=== PATIENT | male | born 1955 | race Caucasian/White ===

== ENCOUNTER 2022-03-27 09:16 | Emergency (ER) | payer MEDICARE, SELFPAY ==
[2022-03-27] VITALS (9 sets, daily range): BP systolic 114–139; BP diastolic 82–94; PULSE 108; RESP 20; TEMP 36.6; O2SAT 95–100
--- NOTE | ~2022-03-27 | CT_ITS ---
EXAMINATION: CT abdomen pelvis wo con DATE: 03/27/2022 12:32 INDICATION: Groin pain. TECHNIQUE: Computed tomography (CT) of the abdomen and pelvis was performed without intravenous contr ast. Automated exposure control and iterative reconstruction technique were employed. The dose-length product was 945.01 mGy-cm. COMPARISON: None. FINDINGS: The visualized portions of the lung bases demonstrate mild atelectasis. No pleural effusion . The heart size is normal. There are coronary artery calcifications. No pericardial effusion. The li maryjo is normal. There are gallstones in the gallbladder, which is normal in size. The spleen, pancreas , and adrenal glands are normal. There is an 11 mm cyst in right kidney. There is a 2 mm stone in rig ht kidney. Left kidney is normal. A Lanier catheter extends from the urethra through a fistula in the membranous urethra and into the rectum. The bladder is distended and contains contrast. There is a ri ght inguinal hernia containing fat and trace ascites. There is an umbilical hernia containing fat. Th ere are no pathologically enlarged lymph nodes. There are brachytherapy seeds in the prostate. There is severe lumbar spondylosis. There are chronic bilateral L5 pars defects. There is 4 mm anterolisthe sis of L5 on S1. IMPRESSION: 1. The Lanier catheter passes through a fistula in the membranous urethra into the rectum. Reviewed, dictated and finalized at location A. IMPRESSION: 1. The Lanier catheter passes through a fistula in the membranous urethra into t he rectum.
--- NOTE | 2022-03-27 09:32 | ED.GENADULT ---
HPI - General Adult General Chief complaint: Urogenital-Male Stated complaint: URINATING OUT OF RECTUM HX PROSTATE CANCER Time Seen by Provider: 03/27/22 09:22 Source: patient Mode of arrival: ambulatory Limitations: no limitations History of Present Illness HPI narrative: 66 years old white male came to the ED by private car from home complaining of urinating from the rectum over the last 8 days. History of prostatic cancer diagnosed April 2021 MD complaint: Psychotic cyclic right foot pain refusal to urinate for the same reason Related Data Allergies Allergy/AdvReac Type Severity Reaction Status Date / Time Penicillins Allergy Unknown Unknown Verified 03/27/22 09:35 [facility] Family History Family History Mother Diabetes mellitus Family history of malignant neoplasm, Onset Age: 70 Father Family history of chronic obstructive pulmonary disease, Onset Age: 89 Social History Social History Smoking status: Never smoker Second hand tobacco smoke exposure: No Alcohol intake: never Course Consultations Consultation #1: DR DIAZ No need for blood work-up or CAT scan today because patient had all that stuff done yesterday at [facility]. Place Lanier catheter, asked patient follow-up with Dr. Carvalho at [facility] for urethral reconstruction. Date: 03/27/22 Time: 11:16 Consultation #2: Dr. Smiley, urethral construction surgeon at [facility] He recommended patient have Lanier catheter and follow-up with them as outpatient, phone number is [phone]. Dr. Smiley was able to see the CAT scan and blood work-up of the patient on his computer today from [facility] yesterday and he could not see any fistula at this time. He believes that Lanier catheter would be okay in the meantime until he will be seen by them. Patient is started on antibiotic yesterday. Dr. Diaz came to the emergency room and managed to place the Lanier catheter in and requested to send patient home on nitrofurantoin 100 mg once a day as a prophylaxis after finishing his course of antibiotic started on yesterday. Patient does not remember the name of the antibiotic. Date: 03/27/22 Time: 11:17 Vital Signs Vital signs: Vital Signs Temperature 36.6 C 03/27/22 09:31 Pulse Rate 108 H 03/27/22 09:31 Respiratory Rate 20 03/27/22 09:31 Blood Pressure 137/93 H 03/27/22 09:31 Pulse Oximetry 100 03/27/22 09:31 Temperature 36.6 C 03/27/22 09:31 Pulse Rate 108 H 03/27/22 09:31 Respiratory Rate 20 03/27/22 09:31 Blood Pressure 137/93 H 03/27/22 09:31 Pulse Oximetry 100 03/27/22 09:31 Medical Decision Making Vital Signs Vital Signs: Vital Signs Temperature 36.6 C 03/27/22 09:31 Pulse Rate 108 H 03/27/22 09:31 Respiratory Rate 20 03/27/22 09:31 Blood Pressure 137/93 H 03/27/22 09:31 Pulse Oximetry 100 03/27/22 09:31 Temperature 36.6 C 03/27/22 09:31 Pulse Rate 108 H 03/27/22 09:31 Respiratory Rate 20 03/27/22 09:31 Blood Pressure 137/93 H 03/27/22 09:31 Pulse Oximetry 100 03/27/22 09:31 Lab Data Labs: Lab Results 03/27/22 Range/Units 11:01 SARS-CoV-2 RNA (RT-PCR) Pending Discharge Plan Discharge Clinical Impression: Rectal fistula, Lanier catheter status Patient Disposition: Home, Self-Care Condition: Stable Instructions: Antibiotic Form, Lanier Catheter Placement and Care (ED), Rectal Fistulotomy (DC), How to Change a Catheter Drainage Bag (DC) Additional Instructions: Return if symptoms are worsening , Dr. Smiley, urologist at [facility] for appointment, phone number is [phone], take Tylenol as as needed for aches and pain, continue home medications. Prescriptions: New nitrofurantoin monohyd/m-cryst [Macrobid] 100 mg capsule 100 mg PO DAILY 30 Days Qty: 30 0RF Rx Instr
[2022-03-27 11:45] LABS: SARS-CoV-2 RNA PCR Negative
--- NOTE | 2022-03-27 13:45 | WPDURCON ---
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 After long discussion I removed the catheter and patient will simply continue to void per rectum until we can see a urologist at [facility]. He is trying to get an appointment with Dr. Yosvany Carvalho Urology Consult Note HPI Date Seen: 03/27/22 Requesting Physician: Dr. Hernandes Primary Care Provider: Bhanu Donovan, MD Consult Narrative Narrative: Adithya Hdez is a 66 year old male with a history of prostate cancer status post completion of pelvic radiation at [facility] in October 2021. He has had trouble with significant rectal irritation and recently saw diet technician registered who did a rectal biopsy and has started him on steroid suppositories. Yesterday presented to the ER at [facility] in [place] with complaints of urinary output per rectum. Reportedly, CT scan of the abdomen pelvis there showed findings consistent with a possible urethral rectal fistula. He was told there they did not have urologist in house and referred him elsewhere. He showed up in emergency room at [facility] with similar complaints. He has had no fevers or chills. He denies abdominal pain reports his complete urine output now is through his rectum. He does not have any fecal incontinence. Review of Systems Cardiovascular: Cardiovascular: Denies chest pain, Denies lightheadedness, Denies palpitations and Denies dyspnea Respiratory: Respiratory: Denies dyspnea Gastrointestinal: Gastrointestinal: Reports as per HPI ( Very loose stool consistent with urine output per rectum), Denies diarrhea, Denies nausea and Denies vomiting Genitourinary: Genitourinary: Denies hematuria and Denies dysuria Endocrine: Endocrine: Denies palpitations PMFSH Family History Family History Mother Diabetes mellitus Family history of malignant neoplasm, Onset Age: 70 Father Family history of chronic obstructive pulmonary disease, Onset Age: 89 Social History Social History Smoking status: Never smoker Second hand tobacco smoke exposure: No Alcohol intake: never Meds Home Medications and Allergies Home Medications Medication Instructions Recorded Confirmed Type blood-glucose meter (OneTouch #1 ea 06/16/19 02/08/20 Rx Ultra2 Meter) allopurinol 300 mg tablet 300 mg PO DAILY #90 tabs 08/01/19 02/08/20 Rx blood sugar diagnostic (OneTouch #100 ea 11/01/19 02/08/20 Rx Ultra Blue Test Strip) lancets (OneTouch UltraSoft #100 ea 11/01/19 02/08/20 Rx Lancets) metformin 1,000 mg tablet 1,000 mg PO BID #180 tabs 01/26/20 02/08/20 Rx clonazepam 0.5 mg tablet 0.5 mg PO DAILY #30 tabs 02/08/20 02/08/20 Rx losartan 100 See Rx Instructions .Route 06/11/20 Rx mg-hydrochlorothiazide 12.5 mg .COMPLEX #90 tabs tablet meloxicam 15 mg tablet See Rx Instructions .Route 09/25/20 Rx .COMPLEX #90 tabs omeprazole 20 mg capsule,delayed 20 mg PO DAILY #90 caps 01/01/21 Rx release nitrofurantoin 100 mg PO DAILY 30 days #30 caps 03/27/22 Rx monohydrate/macrocrystals 100 mg capsule (Macrobid) Allergies Allergy/AdvReac Type Severity Reaction Status Date / Time Penicillins Allergy Unknown Unknown Verified 03/27/22 09:35 Vital Signs Vital Signs - 24 hr 03/27/22 09:31 03/27/22 09:40 03/27/22 10:01 Temperature 97.9 F Pulse Rate 108 H Respiratory Rate 20 Blood Pressure 137/93 H 114/88 117/82 Pulse Oximetry 100 99 99 03/27/22 10:31 03/27/22 11:01 03/27/22 11:27 Temperature Pulse
== END 2022-03-27 13:05 | disposition home or self-care (01) ==
PROVIDERS: Emergency Provider Emergency Medicine; PCP Hospitalist
DX: K60.4 Rectal fistula (principal); Z20.822 Contact with and (suspected) exposure to COVID-19
CPT/HCPCS: 51702; 74176; 99283; 99284; C9803; U0003; U0005

== ENCOUNTER 2024-04-22 14:26 | Emergency (ER) | payer MEDICARE, SELFPAY ==
[2024-04-22] VITALS (35 sets, daily range): BP systolic 106–133; BP diastolic 72–116; PULSE 93–104; RESP 14–26; TEMP 37.1; O2SAT 94–100
--- NOTE | ~2024-04-22 | XR_ITS ---
EXAMINATION: XR chest 2V DATE: 04/22/2024 15:04 INDICATION: Syncope. Left chest pain. TECHNIQUE: Frontal and lateral views of the chest were obtained. COMPARISON: CT abdomen and pelvis 03/27/2022 FINDINGS: There is no pneumonia, pleural effusion, or pneumothorax. The heart size is normal. IMPRESSION: 1. No acute cardiopulmonary disease. Reviewed, dictated and finalized at location A.
--- NOTE | ~2024-04-22 | CT_ITS ---
EXAMINATION: CT brain wo con DATE: 04/22/2024 15:03 INDICATION: Syncope. TECHNIQUE: Computed tomography (CT) of the head was performed without intravenous contrast. The mA wa s adjusted according to patient size. Iterative reconstruction technique was employed. The dose-lengt h product was 605.33 mGy-cm. COMPARISON: None FINDINGS: There is no intracranial hemorrhage, acute infarction, or abnormal intracranial mass lesion . The ventricles are normal in size. There are likely changes of ocular lens replacement surgeries. T here is mild mucosal thickening in the paranasal sinuses. There are small bilateral mastoid effusions . IMPRESSION: 1. Normal brain. Reviewed, dictated and finalized at location A. IMPRESSION: 1. Normal brain.
--- NOTE | 2024-04-22 14:33 | ECG_ITS ---
Test Date: 2024-04-22 14:44:27 Measurements Intervals [place] Rate: 95 P: 0 WA: 0 QRS: -34 QRSD: 103 T: 38 QT: 354 QTc: 447 Interpretive Statements SINUS RHYTHM WITH FRIST DEGREE AV BLOCK LEFT AXIS DEVIATION PATTERN CONSISTENT WITH PULMONARY DISEASE BASELINE ARTIFACT- I, II, III, AVR, AVL ABNORMAL ECG No previous ECG available for comparison Electronically Signed On 04-22-2024 18:54:22 CDT by Vega Hook D.O.
--- NOTE | 2024-04-22 15:01 | ED.SYNCOPE ---
HPI - Syncope General Chief Complaint: Syncope Stated Complaint: syncope/seizure Source: patient and EMS Mode of arrival: EMS Limitations: no limitations History of Present Illness HPI narrative: 68 year old male arrives to the Emergency Department via EMS. Patient was at local pub eating at table outside. Patient states he remembers feeling hot and said so, and then laid his head on table and the next thing he knew he was laying on the ground. Denies any injury. States friends apparently lowered him down. EMS reports a bystander thought he maybe had a seizure, of which he has no history of. Report that he was post-ictal, but responded when his name was called and told bystanders to stop rubbing his chest to wake him up. He did not bite his tongue and was not incontinent. He denies any headache or visual changes. He denies any chest pain, palpitations, shortness of breath prior or now. EMS reported a 20 point drop in his BP with orthostatics. He denies any recent illness. He had several alcoholic drinks today. MD complaint: loss of consciousness Onset (ago): minute(s) -: minutes(s) Prodromal symptoms: other (felt hot) Witnessed: Yes - by Bystander Context: at rest and alcohol use Injuries sustained associated with event: none Current symptoms: none Treatments prior to arrival: none Related Data Home Medications Medication Instructions Recorded Confirmed nifedipine 30 mg tablet,extended 30 mg PO DAILY 04/22/24 04/22/24 release oxybutynin chloride 15 mg 15 mg PO DAILY 04/22/24 04/22/24 tablet,extended release 24 hr Allergies Allergy/AdvReac Type Severity Reaction Status Date / Time Penicillins Allergy Unknown Unknown Verified 04/22/24 14:39 Review of Systems Review of Systems: All systems reviewed & are unremarkable except as noted in HPI and below Constitutional: Constitutional: Reports as per HPI, Denies chills, Denies fever(s) and Denies weakness Eyes: Eyes: Reports as per HPI, Reports no additional eye complaints and Denies change in vision ENT: Reports system reviewed and no additional complaints, except as documented Cardiovascular: Cardiovascular: Reports as per HPI, Reports no additional cardiovascular complaints, Denies chest pain, Denies rapid heart rate and Denies slow heart rate Respiratory: Respiratory: Reports as per HPI, Reports no additional respiratory complaints, Denies chest congestion, Denies cough and Denies dyspnea Gastrointestinal: Gastrointestinal: Reports as per HPI, Reports no additional gastrointestinal complaints, Denies abdominal pain, Denies diarrhea, Denies nausea and Denies vomiting Genitourinary: Genitourinary: Reports no additional male genitourinary complaints and Denies urinary incontinence Musculoskeletal: Musculoskeletal: Reports no additional musculoskeletal complaints, Denies back pain and Denies myalgias Integumentary/Breasts: Skin/Breast: Reports system reviewed and no additional complaints, except as docu Neurologic: Reports system reviewed and no additional complaints, except as documented, Denies confusion, Reports syncope, Denies headache(s), Denies focal weakness, Denies numbness and Denies weakness Psychiatric: Psychiatric: Reports no additional psychiatric complaints Endocrine: Endocrine: Reports no additional endocrine complaints Hematologic/Lymphatic: Hematologic/Lymphatic: Reports no additional hematologic/lymphatic complaints Allergic/Immunologic: Allergic/Immunologic: Reports no additional allergic/immunologic complaints [facility] Family History Family History Mother Diabetes mellitus Family history of malignant neoplasm, Onset Age: 70 Father Family history of chronic obstructive pulmonary disease, Onset Age: 89 Social History Social History Smoking status: Never smoker Second hand tobacco smoke exposure: No [place]
[2024-04-22 15:14] LABS: Basophils Absolute Auto 0.04 K/mm3 (0.00-0.10); Basophils Percent Auto 0.4 % (0.0-1.0); Eosinophils Absolute Auto 0.03 K/mm3 (0.02-0.50); Eosinophils Percent Auto 0.3 % (1.0-6.0); Hematocrit 44.8 % (37.0-46.0); Hemoglobin 15.2 g/dL (12.4-15.3); Immature Granulocyte Absolute 0.05 K/mm3 (0.00-0.00); Immature Granulocyte Percent A 0.5 % (0.0-0.0); Lymphocytes Absolute Auto 0.45 K/mm3 (1.10-4.50); Lymphocytes Percent Auto 4.5 % (18.0-42.0); Mean Corpuscular HGB Conc 33.9 g/dL (32-36); Mean Corpuscular Volume 91.4 fL (78.0-102.0); Mean Platelet Volume 9.4 fl (8.7-11.0); Monocytes Absolute Auto 0.51 K/mm3 (0.10-0.90); Monocytes Percent Auto 5.1 % (2.0-11.0); Neutrophils Absolute Auto 8.94 K/mm3 (1.70-7.20); Neutrophils Percent Auto 89.2 % (50.0-70.0); Platelet Count Result 292 K/mm3 (150-420); Red Cell Distribution Width 14.2 % (11.6-14.4)
[2024-04-22 15:32] LABS: Lactic Acid Reflex 0.8 mmol/L (0.4-2.0)
[2024-04-22 15:35] LABS: Alanine Aminotransferase 23 U/L (16-63); Albumin Level 3.8 g/dL (3.4-5.0); Alkaline Phosphatase 51 U/L (46-116); Anion Gap 6 mmol/L (4-12); Aspartate Amino Transferase 20 U/L (15-37); Blood Urea Nitrogen 14 mg/dL (7-18); Calcium 9.1 mg/dL (8.5-10.1); Carbon Dioxide 30 mmol/L (21-32); Chloride 98 mmol/L (98-108); Estimated CRCL calculation 45 ml/min; Estimated Glomerular Filt Rate 44; Glucose 140 mg/dL (70-99); Magnesium 2.2 mg/dL (1.8-2.4); Osmolality Calculated 280 mOsm/kg (285-295); Potassium 3.6 mmol/L (3.5-5.1); Sodium 134 mmol/L (136-145); Total Protein 8.2 g/dL (6.4-8.2); Troponin I 5.1 ng/L (0.00-60.4)
[2024-04-22 15:38] LABS: Ethanol < 3 mg/dL (0-6)
[2024-04-22 15:51] LABS: SARS-CoV-2 RNA PCR Negative (Negative)
[2024-04-22 15:55] LABS: Influenza A QL RT-PCR Negative (Negative); Influenza B QL RT-PCR Negative (Negative); RSV RNA, RT-PCR Negative (Negative)
[2024-04-22 16:27] LABS: Add Urine Microscopic? YES; Appearance Urine Clear (Clear); Bilirubin Urine Negative (Negative); Blood Urine Negative (Negative); Color Urine Light Yellow (Yellow); Glucose Urine UA Negative (Negative); Ketones Urine Trace (Negative); Leukocyte Esterase Ur 1+ (Negative); Nitrate Urine Negative (Negative); Protein Urine Negative (Negative); Specific Grav Ur 1.015 (1.010-1.020); Urobilinogen Urine 0.2 mg/dL (0.2-1.0)
[2024-04-22 16:33] LABS: Bacteria Urine Trace /hpf; RBC Urine None seen /hpf (0-2); Squamous Epithelial Cell Urine Rare /hpf (Few); WBC Urine 16-20 /hpf (0-3)
--- NOTE | 2024-04-25 14:07 | PC.NURSE ---
FINAL URINE CULTURE POSITIVE FOR KLEBSIELLA PNEUMONIEAE RESULTS SHOWN TO DR EVANGELISTA NEW ORDERS RECEIVED FOR CHANGE IN ANTIBIOTIC PT CONTACTED AND CIPRO 500MG PO BID FOR 7 DAYS CALLED TO ROBE MACKENZIE
== END 2024-04-22 17:37 | disposition home or self-care (01) ==
PROVIDERS: Emergency Provider Emergency Medicine; PCP Hospitalist
DX: N39.0 Urinary tract infection, site not specified (principal); E86.0 Dehydration; I95.1 Orthostatic hypotension; Z79.899 Other long term (current) drug therapy; Z20.822 Contact with and (suspected) exposure to COVID-19
CPT/HCPCS: 36415; 70450; 71046; 80053; 80307; 81001; 83605; 83735; 84484; 85025; 87077; 87086; 87088; 87186; 87637; 93005; 99284